=== PATIENT | male | born 1950 | race Hispanic/Latino ===

== ENCOUNTER 2024-07-09 10:05 | Emergency (ER) | payer OTHER, MEDICARE ==
[~2024-07-09] VITALS: Ht 172.7 cm; Wt 83.5 kg
[~2024-07-09 10:05] MED LIST: CLAR-44 PO; LOSA50TA64 PO; METF-444 PO; SIMV10TA97 PO
[2024-07-09] MEDS ORDERED: VALA100031 PO (11:26)
[2024-07-09] MEDS ORDERED: PRED20TA3 PO (11:26)
[2024-07-09 11:37] VITALS: BP 141/71; PULSE 49; RESP 18; O2SAT 98
== END 2024-07-09 11:46 | disposition home or self-care (01) ==
LOC: EDH 10:05
DX: G51.0 Bell's palsy (principal); I10 Essential (primary) hypertension; Z79.84 Long term (current) use of oral hypoglycemic drugs; Z79.899 Other long term (current) drug therapy
CPT/HCPCS: 70450